=== PATIENT | male | born 1955 | race Caucasian/White ===

== ENCOUNTER 2017-12-04 16:29 | Emergency (ER) | payer OTHER ==
[2017-12-04] MEDS: ceFAZolin SOD 1 GM in D5W MINI-BAG PLUS 50 ML IV (17:10)
[2017-12-04] MEDS: HYDROMORPHONE HCL 0.5 MG/ 0.5 ML SYRINGE (J1170 PER 1) IV ×2 (17:10→17:53)
[2017-12-04] MEDS ORDERED: LIDOCAINE 2% MDV 20 ML VIAL As Ordered (18:37)
[2017-12-04] MEDS: LIDOCAINE 2% MDV 20 ML VIAL SC (19:00)
== END 2017-12-04 19:55 | disposition home or self-care (01) ==
LOC: M ED 16:29
DX: S62.630B Displaced fracture of distal phalanx of right index finger, initial encounter for open fracture (principal); M18.11 Unilateral primary osteoarthritis of first carpometacarpal joint, right hand; W31.2XXA Contact with powered woodworking and forming machines, initial encounter; Y92.098 Other place in other non-institutional residence as the place of occurrence of the external cause; I10 Essential (primary) hypertension; F32.9 Major depressive disorder, single episode, unspecified; Z88.5 Allergy status to narcotic agent; Z91.040 Latex allergy status; Z79.899 Other long term (current) drug therapy; Z79.82 Long term (current) use of aspirin; Z79.1 Long term (current) use of non-steroidal anti-inflammatories (NSAID)
CPT/HCPCS: J0690